=== PATIENT | female | born 1990 | race Two or more races ===

== ENCOUNTER 2018-08-09 12:00 | Inpatient (IN) | payer OTHER ==
[~2018-08-09] VITALS: Ht 157.5 cm; Wt 63.5 kg
[2018-08-22] MEDS ORDERED: FOLIC ACID0.8 MG PO (09:46)
[2018-08-22] MEDS ORDERED: PRENATAL TABLE1 EAC2 PO (09:46)
== END 2018-08-24 14:00 | DRG 807 ==
LOC: LDR 08-22 08:37 → OB/GYN 08-22 08:37
PROC: 10E0XZZ Delivery of Products of Conception, External Approach (ICD-10-PCS; principal; 2018-08-22)
PROC: 0KQM0ZZ Repair Perineum Muscle, Open Approach (ICD-10-PCS; 2018-08-22)
PROC: 10907ZC Drainage of Amniotic Fluid, Therapeutic from Products of Conception, Via Natural or Artificial Opening (ICD-10-PCS; 2018-08-22)
PROC: 3E033VJ Introduction of Other Hormone into Peripheral Vein, Percutaneous Approach (ICD-10-PCS; 2018-08-22)
PROC: 4A1HXCZ Monitoring of Products of Conception, Cardiac Rate, External Approach (ICD-10-PCS; 2018-08-22)
DX: O70.1 Second degree perineal laceration during delivery (principal); Z37.0 Single live birth; Z3A.38 38 weeks gestation of pregnancy